=== PATIENT | female | born 2005 | race Caucasian/White ===

== ENCOUNTER 2025-03-26 21:16 | Emergency (ER) | payer OTHER ==
[2025-03-26 22:05] LABS: #Basophils 0.08 10x3/uL (0.0-0.2); #Eosinophils 0.23 10x3/uL (0.0-0.7); #Monocytes 0.83 10x3/uL (0.11-0.59); #Neutrophils 3.81 10x3/uL (1.40-6.50); %Basophils 1.0 % (0.0-1.0); %Eosinophils 3.0 % (0.0-10.0); %Lymphocytes 36.1 % (28.0-48.0); %Monocytes 10.7 % (0.0-4.0); %Neutrophils 48.9 % (31.0-61.0); Hematocrit 44.2 % (36.0-47.0); Hemoglobin 14.2 g/dL (12.0-16.0); Mean Corpuscular Hemoglobin 27.1 pg (25.0-35.0); Mean Corpuscular Volume 84.4 fL (78.0-98.0); Platelet Count 317 10x3/uL (130-400); Red Blood Cell (RBC) Count 5.24 mill/uL (4.00-5.20); White Blood Cell (WBC) Count 7.78 10x3/uL (4.8-10.8)
[2025-03-26 22:19] LABS: ALT (SGPT) 28 U/L (Less than 34); AST (SGOT) 34 U/L (11-34); Albumin 4.4 g/dL (3.1-4.5); Alkaline Phosphatase 90 U/L (40-100); Anion Gap 12 mmol/L (10-20); BUN (Urea Nitrogen) 8 mg/dL (7.0-18.7); Bilirubin, Total 0.4 mg/dL (0.3-1.2); CK (CPK) 80 U/L (29-168); Calc. Creatinine Clearance 0 mL/min (70-130); Calcium 8.9 mg/dL (7.8-10.44); Carbon Dioxide 24 mmol/L (22-29); Chloride 106 mmol/L (98-107); Globulin 2.9 g/dL (2.4-3.5); Glucose 95 mg/dL (70-105); Potassium 4.1 mmol/L (3.5-5.1); Sodium 138 mmol/L (136-145)
[2025-03-26 22:29] LABS: Pregnancy Test - Urine (BHCG) Negative (Negative); Pregu Control Background? CLEAR/WHITE (CLR/WHITE); Pregu Control Bar Appear? YES (CONTROL BAR)
[2025-03-26 22:31] LABS: Bacteria/HPF None Seen HPF (None Seen); CAUTI Indications for Culture Pelvic or flank pain; Glucose, Urine (Dipstick) Normal (Negative); Leukocyte Negative Leu/uL (Negative); Protein, Urine (Dipstick) Negative (Neg-Trace); RBC/HPF 0-3 HPF (0-3); Specific Gravity, Urine 1.006 (1.002-1.036); WBC/HPF 0-3 HPF (0-3)
[2025-03-26 22:32] LABS: Cocaine Metabolite Screen Negative (Negative); THC/Cannabinoid Screen Negative (Negative); Tricyclic Screen Negative (Negative)
[2025-03-26 22:45] LABS: Urine Culture Reflex No No
== END 2025-03-27 00:15 | disposition home or self-care (01) ==
LOC: ERS 21:16
DX: R55 Syncope and collapse (principal)
CPT/HCPCS: 36415; 80053; 80306; 81001; 81025; 82550; 85025; 93005